=== PATIENT | female | born 1950 | race Two or more races ===

== ENCOUNTER 2018-11-13 02:31 | Emergency (ER) | payer SELFPAY ==
[2018-11-13 02:47] VITALS: RESP 18; O2SAT 98
--- NOTE | 2018-11-13 03:54 | ED PDOC ---
HPI: Back Time Seen by Provider: 11/13/18 03:12 Chief Complaint (Nursing): Back Pain Chief Complaint (Provider): Back Pain History Per: Patient History/Exam Limitations: no limitations Additional Complaint(s): Juanita Chau is a homeless 68 year old female with a past medical history of chronic back pain, who was brought to the Emergency department by EMS [place]. When she was approached and asked to leave the premises, she stated that she has back pain. In the ED, she has no complaints and is sleeping in her bed as soon as she was transferred over. Patient asked to turn the lights off and has voiced no complaints. PMD: no provider Past Medical History Reviewed: Historical Data, Nursing Documentation, Vital Signs Vital Signs: Last Vital Signs Temp 98.6 F 11/13/18 02:40 Pulse 83 11/13/18 02:40 Resp 18 11/13/18 02:40 BP 173/99 H 11/13/18 02:40 Pulse Ox 98 11/13/18 02:40 - Medical History PMH: Back Problems - Surgical History Surgical History: Back Surgery - Family History Family History: States: Unknown Family Hx - Allergies Allergies/Adverse Reactions: Allergies Allergy/AdvReac Type Severity Reaction Status Date / Time No Known Allergies Allergy Verified 11/13/18 03:04 Review of Systems ROS Statement: Except As Marked, All Systems Reviewed And Found Negative Musculoskeletal: Positive for: Back Pain Physical Exam - Reviewed Nursing Documentation Reviewed: Yes Vital Signs Reviewed: Yes - Physical Exam Appears: Positive for: No Acute Distress Neurologic/Psych: Positive for: Alert, Oriented - ECG O2 Sat by Pulse Oximetry: 98 (RA) Pulse Ox Interpretation: Normal Medical Decision Making Medical Decision Making: Time: 315 Impression: chronic back pain, homelessness Plan: --Motrin tab 600 mg PO --Patient has requested a bed to sleep in. No medical condition that requires further evaluation in the ED. Provider will provide patient with jail and a bed during this cold weather. Scribe Attestation: Documented by Nigel Sue, acting as a scribe for Johanny Pederson MD. Provider Scribe Attestation: All medical record entries made by the Scribe were at my direction and personally dictated by me. I have reviewed the chart and agree that the record accurately reflects my personal performance of the history, physical exam, medical decision making, and the department course for this patient. I have also personally directed, reviewed, and agree with the discharge instructions and disposition. Disposition - Clinical Impression Clinical Impression: Chronic back pain - Disposition Referrals: [facility] [Outside] Disposition Time: 06:00 Condition: GOOD Instructions: Chronic Pain (DC) Forms: [facility] (Cook Islander)
[2018-11-13 06:24] VITALS: BP 117/50; PULSE 78; TEMP 98.1
== END 2018-11-13 06:32 | disposition home or self-care (01) ==
LOC: H.ER 02:31
DX: M54.9 Dorsalgia, unspecified (principal); G89.29 Other chronic pain; Z59.0 Homelessness

== ENCOUNTER 2018-11-14 01:45 | Emergency (ER) | payer SELFPAY ==
[2018-11-14 03:02] VITALS: BP 139/87; PULSE 68; RESP 18; TEMP 98.9; O2SAT 98
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
== END 2018-11-14 06:30 | disposition home or self-care (01) ==
LOC: H.ER 01:45
DX: M54.5 Low back pain (principal); G89.29 Other chronic pain; Z59.0 Homelessness